=== PATIENT | male | born 1950 | race Caucasian/White ===

== ENCOUNTER 2021-09-30 16:49 | Emergency (ER) | payer SELFPAY ==
[~2021-09-30] VITALS: Ht 172.7 cm; Wt 70.8 kg
[2021-09-30] MEDS: TDAP [DIPH/PERTUSSIS/TET] 0.5 ML VIAL IM ONE (17:45)
[2021-09-30] MEDS ORDERED: TDAP [DIPH/PERTUSSIS/TET] 0.5 ML VIAL IM ONE (17:47)
[2021-09-30] MEDS ORDERED: LIDOCAINE HCL/MPF 1% 30 ML VIAL IJ ONE (18:37)
[2021-09-30] MEDS: LIDOCAINE 1%-EPI 1:100,000 20 ML VIAL TP ONE (18:48)
--- NOTE | 2021-09-30 19:10 | NUR ---
R side head laceration s/p mechanical GLF at home. denies LOC . No neuro defecits breathing even and unlabored all VSS.
--- NOTE | 2021-09-30 19:16 | NUR ---
Patient discharged to home in stable condition. Written and verbal after care instructions given. Patient verbalizes understanding of instruction.
[2021-09-30 19:21] VITALS: BP 137/87
== END 2021-09-30 19:21 | disposition home or self-care (01) ==
LOC: EDUNIT# 16:49 → ER 16:51
DX: S01.01XA Laceration without foreign body of scalp, initial encounter (principal); W01.0XXA Fall on same level from slipping, tripping and stumbling without subsequent striking against object, initial encounter; Y93.89 Activity, other specified; Y92.89 Other specified places as the place of occurrence of the external cause; Y99.8 Other external cause status
CPT/HCPCS: 12002; 70450; 90471; 90715; 99284; J3490